=== PATIENT | female | born 1975 | race Caucasian/White ===

== ENCOUNTER → 2020-09-11 | Outpatient (CLI) | payer MEDICARE, OTHER ==
[~2020-09-11] MED LIST: BENADRYL 25MG C25 MG PO; NEURONTIN800 MG PO; ROXICODONE30 MG PO; TAMIFLU 75 MG C75 MG PO; TRAZODONE HCL100 MG PO; TYLENOL 325MG325 MG PO; ZOFRAN8 MG PO
== END ==
LOC: US 13:30 → MAMO 14:30
DX: N60.11 Diffuse cystic mastopathy of right breast (principal); N60.12 Diffuse cystic mastopathy of left breast; N64.4 Mastodynia; R92.2 Inconclusive mammogram; Z80.3 Family history of malignant neoplasm of breast
CPT/HCPCS: 77066; G0279

== ENCOUNTER 2021-03-14 20:31 | Emergency (ER) | payer OTHER, MEDICARE ==
[2021-03-14] MEDS ORDERED: HYDROCODON-ACE1 EAC4 PO (22:06)
== END 2021-03-14 22:13 | disposition home or self-care (01) ==
LOC: ER1 20:31
DX: S13.4XXA Sprain of ligaments of cervical spine, initial encounter (principal); S33.5XXA Sprain of ligaments of lumbar spine, initial encounter; S23.3XXA Sprain of ligaments of thoracic spine, initial encounter; V49.49XA Driver injured in collision with other motor vehicles in traffic accident, initial encounter
CPT/HCPCS: 70450; 72125; 72128; 72131; 96374; 96375; 99284; J2270; J2405

== ENCOUNTER 2021-07-07 11:38 | Emergency (ER) | payer MEDICARE, OTHER ==
[~2021-07-07 11:38] MED LIST changes: +HYDROCODON-ACE1 EAC4 PO
[2021-07-07 13:52] LABS: HEMOGLOBIN 13.9 gm/dl (12.3-15.3); RED BLOOD COUNT 4.29 M/UL (4.00-5.10); WHITE BLOOD COUNT 9.1 K/UL (4.5-11.0)
[2021-07-07 14:01] LABS: BUN/CREATININE RATIO 13 (0-10)
== END 2021-07-07 18:16 | disposition left against medical advice (07) ==
LOC: ER1 11:38
PROVIDERS: Nurse Practitioner
DX: U07.1 COVID-19 (principal); J12.82 Pneumonia due to coronavirus disease 2019; I10 Essential (primary) hypertension; Z87.442 Personal history of urinary calculi; Z88.0 Allergy status to penicillin; Z88.5 Allergy status to narcotic agent
CPT/HCPCS: 36600; 71045; 80053; 81001; 82550; 82553; 82803; 83605; 83874; 84484; 85025; 85379; 85652; 86140; 93005; 94664; 96374; 96375; 99283; J1885; J2405; Q9967